=== PATIENT | female | born 1985 ===

== ENCOUNTER 2017-11-30 20:09 | Outpatient (CLI) | payer OTHER ==
[~2017-11-30 20:09] MED LIST: FLUCONAZOLE150 MG
[2017-11-30] MEDS ORDERED: PRENATAL TABLE1 EAC1 PO (20:54)
[2017-12-01] MEDS ORDERED: AMOX1TAB5 PO (13:38)
== END 2017-12-01 14:38 | disposition home or self-care (01) ==
LOC: OBS/DEL 20:09
DX: O60.02 Preterm labor without delivery, second trimester (principal); O23.42 Unspecified infection of urinary tract in pregnancy, second trimester; Z34.02 Encounter for supervision of normal first pregnancy, second trimester

== ENCOUNTER 2018-02-11 15:15 | Inpatient (IN) | payer OTHER ==
[~2018-02-11] VITALS: Ht 175.3 cm; Wt 81.6 kg
[~2018-02-11 15:15] MED LIST changes: +AMOX1TAB5 PO; +PRENATAL TABLE1 EAC1 PO
[2018-02-26] MEDS ORDERED: ACETAMINOPHEN500 M1 PO (10:40)
[2018-02-26] MEDS ORDERED: IBUPROFEN800 MG PO (10:41)
== END 2018-02-26 12:46 | disposition home or self-care (01) | DRG 807 ==
LOC: LDR 02-23 18:28 → OB/GYN 02-24 18:12 → LDR 03-01 15:15
PROC: 10E0XZZ Delivery of Products of Conception, External Approach (ICD-10-PCS; principal; 2018-02-23)
PROC: 0HQ9XZZ Repair Perineum Skin, External Approach (ICD-10-PCS; 2018-02-23)
PROC: 3E0P7VZ Introduction of Hormone into Female Reproductive, Via Natural or Artificial Opening (ICD-10-PCS; 2018-02-23)
PROC: 3E033VJ Introduction of Other Hormone into Peripheral Vein, Percutaneous Approach (ICD-10-PCS; 2018-02-23)
PROC: 4A1HXCZ Monitoring of Products of Conception, Cardiac Rate, External Approach (ICD-10-PCS; 2018-02-23)
DX: O70.0 First degree perineal laceration during delivery (principal); Z37.0 Single live birth; Z3A.39 39 weeks gestation of pregnancy; O13.4 Gestational [pregnancy-induced] hypertension without significant proteinuria, complicating childbirth

== ENCOUNTER 2018-09-13 08:20 | Emergency (ER) | payer OTHER ==
[~2018-09-13] VITALS: Ht 172.7 cm; Wt 65.8 kg
[~2018-09-13 08:20] MED LIST changes: +ACETAMINOPHEN500 M1 PO; +IBUPROFEN800 MG PO
== END 2018-09-13 17:16 | disposition home or self-care (01) ==
LOC: ER 08:20
DX: J22 Unspecified acute lower respiratory infection (principal); K52.9 Noninfective gastroenteritis and colitis, unspecified

== ENCOUNTER 2019-09-22 12:57 | Outpatient (CLI) | payer OTHER | END 2019-09-22 13:06 | disposition home or self-care (01) | LOC: RAD 12:57 | PROVIDERS: ATTEND Podiatrist Foot Surgery | DX: M77.8 Other enthesopathies, not elsewhere classified (principal) ==

== ENCOUNTER 2024-01-26 06:28 | Day surgery (SDC) | payer OTHER ==
[2024-01-19 09:09] VITALS: BP 138/84
[2024-01-19 09:35] LABS: HEMATOCRIT 37.8 % (36.0-45.00); HEMOGLOBIN 13.1 g/dL (12.0-15.00); MEAN CELL VOLUME 90.4 fL (80.00-100.00); MEAN CORPUSCULAR HEMOGLOBIN 31.3 pg (27.00-32.0); MEAN CORPUSCULAR HGB CONC 34.7 g/dl (32.0-36.0); PLATELET COUNT 240 K/uL (150-450); RED BLOOD COUNT 4.18 M/uL (4.00-6.00); RED CELL DISTRIBUTION WIDTH 12.5 % (11.5-14.5)
[2024-01-19 09:44] LABS: INR 1.08; PARTIAL THROMBOPLASTIN TIME 28.5 SECONDS (22.0-34.0); PROTHROMBIN TIME 11.7 SECONDS (9.0-11.5)
[2024-01-19 10:02] LABS: URINE APPEARANCE Clear; URINE BILIRRUBIN Negative (NEGATIVE); URINE BLOOD Negative; URINE COLOR Yellow; URINE GLUCOSE Negative (NEGATIVE); URINE KETONE Negative (NEGATIVE); URINE LEUKOCYTE Negative; URINE NITRATE Negative; URINE PROTEIN Negative (NEGATIVE); URINE UROBILINOGEN 0.2 E.U./dl
[2024-01-19 10:09] LABS: URINE BACTERIA 23.9 uL (0.0-1933); URINE EPITHELIAL CELLS 1.6 uL (0.0-38.8)
[2024-01-19 10:18] LABS: URINE WBC 0.6 uL (0.0-23.2)
[2024-01-19 10:26] LABS: BILIRUBIN TOTAL 1.56 mg/dL (0.3-1.2); CREATININE SERUM 0.64 mg/dL (0.55-1.02); GFR 104.41; GLOBULINA 3.2 G/DL (2.4-3.5); POTASSIUM 3.93 mEq/L (3.5-5.1); TOTAL PROTEIN 7.2 gm/dL (6.4-8.2)
[~2024-01-26] VITALS: Ht 172.7 cm; Wt 65.8 kg
[2024-01-26] MEDS ORDERED: CEFAZOLIN SODIUM 1,000 MG VIAL IV ONE (14:30)
[2024-01-26] MEDS ORDERED: CEFAZOLIN SODIUM 1,000 MG VIAL IV SCH (15:00)
[2024-01-26] MEDS ORDERED: FAMOTIDINE/PF 20 MG/10 ML SYRINGE IV SCH (15:00)
== END 2024-01-26 17:15 | disposition home or self-care (01) ==
LOC: CIR.AMB 06:28
PROVIDERS: ATTEND Specialist
DX: D24.1 Benign neoplasm of right breast (principal); D48.61 Neoplasm of uncertain behavior of right breast; N60.81 Other benign mammary dysplasias of right breast